=== PATIENT | female | born 1975 | race Caucasian/White ===

== ENCOUNTER → 2017-03-12 | Outpatient (CLI) | payer BC ==
[~2017-03-12] MED LIST: LEVO1TAB PO
--- NOTE | 2017-03-12 12:05 | DIAGNOSTIC IMAGING REPORT ---
THYROID ULTRASOUND CLINICAL HISTORY: PERSONAL HX OF THYROID Malignancy, hypothyroidism COMPARISON STUDY: None. TECHNIQUE: Sonography of the thyroidectomy bed and adjacent soft tissues was performed. FINDINGS: No nodules or enlarged lymph nodes were identified within the neck. No residual thyroid tissue was identified status post thyroidectomy. IMPRESSION: No evidence of recurrent malignancy within the neck status post thyroidectomy. Electronically signed by: Damian Hess M.D. 03/12/2017 12:04 PM Dictated Date/Time: 03/12/2017 12:03 PM
== END | disposition home or self-care (01) ==
LOC: C.ULTR 11:29
PROVIDERS: ATTEND Physician Assistant
DX: Z85.850 Personal history of malignant neoplasm of thyroid (principal); E03.9 Hypothyroidism, unspecified

== ENCOUNTER → 2017-03-12 | Outpatient (CLI) | payer BC ==
--- NOTE | 2017-03-12 13:32 | MAMMOGRAPHY REPORT ---
BILATERAL DIGITAL DIAGNOSTIC MAMMOGRAM TOMOSYNTHESIS WITH CAD AND TARGETED BILATERAL ULTRASOUND: 03/12 CLINICAL HISTORY: 42-year-old woman presents after feeling a lump in the upper outer quadrant of the right breast 1-2 weeks ago. No skin erythema or nipple discharge. Also baseline mammogram. TECHNIQUE: Bilateral breast tomosynthesis in addition to standard 2D mammography was performed. Curre nt study was also evaluated with a Computer Aided Detection (CAD) system. COMPARISON: No prior exams were available for comparison. BREAST COMPOSITION: The tissue of both breasts is almost entirely fatty. FINDINGS: A triangular marker was placed overlying the skin of the upper outer quadrant of the right breast, denoting the lump pointed out by the patient. There is no evidence of a suspicious mass, arc hitectural distortion, asymmetry or calcifications in the area of palpable concern or throughout the remainder of the right breast. There is a low density 5 mm nodular asymmetry in the medial anterior left breast on the CC view that probably represents fibroglandular tissue. This is not identified on the MLO view and localizes inferiorly based on the CC tomosynthesis localizer bar. However given th at this is the baseline exam and there are no prior mammograms for comparison, further evaluation wit h ultrasound was also performed in the lower inner quadrant of the left breast. Targeted ultrasound was performed in the area of palpable lump pointed out by the patient (10:00 axis approximately 7 cm from the nipple). I was unable to palpate a discrete suspicious mass in the area pointed out by the patient. 2. Additional scanning was also performed in the adjacent 9:00 and 11:00 axes. Sonographically norm al tissue is seen without a discrete solid or cystic mass. No suspicious mass was seen in the lower inner quadrant of the left breast to correlate with the nodu lar asymmetry. IMPRESSION: ACR BI-RADS CATEGORY 2: BENIGN, TARGETED ULTRASOUND ACR BI-RADS CATEGORY 2: BENIGN 1. There is no suspicious mammographic or sonographic abnormality to explain the palpable lump in th e right upper outer quadrant. Therefore, clinical follow-up is recommended, as biopsy of a clinicall y suspicious mass should not be precluded by negative imaging. 2. Low density nodularity in the medial left breast seen on the CC tomosynthesis images most likely represents normal fibroglandular tissue, and no suspicious sonographic correlate was seen. 3. Overall, no mammographic evidence of malignancy in the breasts. Pending any further workup in th e right upper outer quadrant, would recommend bilateral routine mammography in one year. Approximately 10% of breast cancers are not detected with mammography. A negative mammographic report should not delay biopsy if a clinically suggestive mass is present. Lashae Ma M.D. ay/:03/12/2017 12:13:43 Ornithology Teacher: Shirlene RUBIN(R)(M), [facility] letter sent: Normal 1/2 BI-RADS Code: ACR BI-RADS Category 2: Benign Ultrasound BI-RADS: ACR BI-RADS Category 2: Benign
== END | disposition home or self-care (01) ==
LOC: C.MAMM 09:35
PROVIDERS: ATTEND Physician Assistant
DX: N63 Unspecified lump in breast (principal)

== ENCOUNTER 2017-11-25 12:07 | Emergency (ER) | payer BC, OTHER ==
[~2017-11-25] VITALS: Ht 170.2 cm; Wt 108.7 kg
[2017-11-25 12:23] VITALS: Ht 170.2 cm; Wt 108.7 kg
[2017-11-25 14:13] VITALS: TEMP 36.7
[2017-11-25 14:35] LABS: HEMATOCRIT 44.5 % (37-47); HEMOGLOBIN 15.1 g/dL (12.0-16.0); MEAN CELL VOLUME 85.6 fL (80-100); MEAN CORPUSCULAR HGB CONC 33.9 g/dl (32-36); MEAN PLATELET VOLUME 9.6 fL (7.4-10.4); PLATELET COUNT 269 K/uL (130-400); RED CELL DISTRIBUTION WIDTH CV 12.9 % (11.5-14.5); RED CELL DISTRIBUTION WIDTH SD 40.4 fL (36.4-46.3); WHITE BLOOD COUNT 6.58 K/uL (4.8-10.8)
[2017-11-25 14:43] LABS: INR 0.9 (0.9-1.1); PTT PATIENT 26.6 SECONDS (21.0-31.0)
[2017-11-25 14:56] LABS: ALBUMIN 4.1 gm/dl (3.4-5.0); ALT/SGPT 60 U/L (12-78); BLOOD UREA NITROGEN 9 mg/dl (7-18); CALCIUM 9.1 mg/dl (8.5-10.1); CARBON DIOXIDE 23 mmol/L (21-32); CREATININE 0.86 mg/dl (0.60-1.20); GLUCOSE 83 mg/dl (70-99); POTASSIUM 3.8 mmol/L (3.5-5.1); SODIUM 136 mmol/L (136-145)
[2017-11-25 15:01] LABS: ALKALINE PHOSPHATASE 94 U/L (45-117); AST/SGOT 27 U/L (15-37); CKMB < 0.5 ng/ml (0.5-3.6); TOTAL PROTEIN 7.4 gm/dl (6.4-8.2)
[2017-11-25 15:19] VITALS: O2SAT 97
[2017-11-25] MEDS ORDERED: RIVA1TAB4 PO (15:25)
[2017-11-25] MEDS ORDERED: LEVO137T3 PO (15:25)
--- NOTE | 2017-11-25 15:29 | DIAGNOSTIC IMAGING REPORT ---
CHEST ONE VIEW PORTABLE HISTORY: 42 years-old Female palpitations acute cardiac palpitations COMPARISON: None available TECHNIQUE: Portable AP view of the chest FINDINGS: Cardiomediastinal and hilar silhouettes are within normal limits. No pneumothorax, pleural effusion, focal airspace consolidation or overt pulmonary edema. The bones of the chest appear grossly intact. IMPRESSION: No acute process. The above report was generated using voice recognition software. It may contain grammatical, syntax or spelling errors. Electronically signed by: Jose Raul Zimmerman M.D. 11/25/2017 3:27 PM Dictated Date/Time: 11/25/2017 3:27 PM
[2017-11-25] MEDS ORDERED: OPTIRAY 320 IV PRN (15:30)
--- NOTE | 2017-11-25 16:12 | DIAGNOSTIC IMAGING REPORT ---
(CHEST FOR PE) ANGIO WITH CLINICAL HISTORY: 42 years-old Female presenting with ^eval PE ^chest pain, hx factor V. TECHNIQUE: Multidetector CT angiography of the chest was performed after administration of intravenous contrast. 3-D volumetric and/or maximum intensity projection (MIP) images were subsequently reconstructed for review. IV contrast: 87 mL of Optiray 320. A dose lowering technique was used consistent with the principles of ALARA (as low as reasonably achievable). COMPARISON: Chest x-ray performed earlier the same day. CT DOSE (mGy.cm): The estimated cumulative dose is 457.89 mGycm. FINDINGS: Promotional Marketing Analyst topogram: Unremarkable. Pulmonary vasculature: The study is suboptimal for the assessment of the pulmonary vascular tree secondary to timing of the contrast bolus and respiratory motion artifact. Allowing for limited image quality, no central filling defect to suggest pulmonary embolus. Main pulmonary artery is not enlarged. No flattening of the interventricular septum. No intracardiac filling defect. No reflux of contrast into the hepatic veins. Remaining chest: On soft tissue windows, thyroid may be surgically absent or outside the [id number]. Few small calcified lymph nodes noted in the prevascular region. No pathologically enlarged lymph nodes in the axillae, supraclavicular fossae, mediastinum, or amadou. Normal aorta. Top normal cardiac size. No pericardial or pleural effusion. Upper abdomen normal. On lung windows, extensive mosaic attenuation suggest small airways disease. No significant interlobular septal thickening. No focal infiltrate or nodule. Central airways patent. On bone windows, normal osseous structures. IMPRESSION: 1. Allowing for suboptimal image quality, no evidence of pulmonary embolus. 2. Extensive mosaic attenuation suggest small airways disease. No focal infiltrate to suggest pneumonia. Electronically signed by: Raj Dao M.D. 11/25/2017 4:11 PM Dictated Date/Time: 11/25/2017 4:06 PM
--- NOTE | 2017-11-25 16:30 | EMERGENCY ROOM VISIT NOTE ---
ED Visit Note First contact with patient: 14:51 CHIEF COMPLAINT: Chest pain, palpitations HISTORY OF PRESENTING ILLNESS: This is a 42-year-old female with past medical history of hypothyroidism secondary to thyroidectomy, factor V Leiden, and fibromyalgia, who presents to the emergency department with complaint of chest pains that started 5 days ago. She states that the chest pain is intermittent, only lasts for a few seconds, is sharp stabbing pain and "almost feels like an electric shock in my chest," occasionally radiates into her shoulders, back, and down her legs which she attributes to her fibromyalgia, nothing seems to make it better or worse, currently she denies any pain. She does rate these pain episodes as 8/10. She states that her symptoms have been getting progressively worse, she is now having these episodes frequently, she believes more than 10 times an hour. She states that when this happens, it feels like her heart is racing, but when she checks her pulse with her wrist band heart rate monitor, it is usually in the 60s. She has associated shortness of breath , lightheadedness, and sweats with the episodes, this resolves quickly after the pain stops. She denies any ongoing shortness of breath or exertional dyspnea. She denies any nausea or vomiting. She is on Xarelto for her factor V , denies any history of DVT or PE, and states she has been taking this medication appropriately. She reports a history of thyroid cancer, which is why she had her thyroidectomy, she states that she has been very stable on her medications and her most recent thyroid levels were within normal limits. She denies any headaches, vision changes, neck pain, back pain, abdominal pain, diarrhea, urinary symptoms, or rash. She denies any recent illnesses, fevers or chills. REVIEW OF SYSTEMS: A complete 10 point review of systems was reviewed with the patient with pertinent positives and negatives as per history of present illness. All else were negative. PAST MEDICAL HISTORY: Reviewed in the chart and as above SOCIAL HISTORY: Lives at home. She vapes daily, reports occasional alcohol use , denies any recreational drug use. ALLERGIES: Reviewed in chart. PHYSICAL EXAM: CONSTITUTIONAL: Pleasant and cooperative. No acute distress. Well-hydrated, well appearing and well nourished. HEENT: Normocephalic, atraumatic. Pupils equal, round and reactive to light, EOMI. TMs normal. Pharynx normal. Moist mucous membranes. NECK: Supple, full active range of motion without discomfort. No cervical adenopathy. RESPIRATORY: Clear to auscultation bilaterally with no wheezing, crackles, rhonchi or stridor. Equal expansion bilaterally. CARDIOVASCULAR: Regular rate and rhythm with no murmurs, rubs or gallops. Normal peripheral perfusion. No edema. CHEST WALL: Anterior chest wall mildly tender to palpation, no crepitus, no ecchymosis, no rash, no swelling. GASTROINTESTINAL: Soft, nontender, nondistended. No palpable masses or HSM. Bowel sounds present in all quadrants. MUSCULOSKELETAL: Full range of motion of all joints without discomfort. INTEGUMENTARY: No rash or other significant dermatologic conditions noted. NEUROLOGIC: Alert and oriented X 4 with normal affect. Normal strength and sensation in all 4 extremities. No focal neurologic deficits noted. Normal speech. Normal gait observed. ED COURSE AND MEDICAL DECISION MAKING: CC: Patient presenting with complaint of chest pain/palpitations DIFFERENTIAL DIAGNOSIS: Includes, but not limited to cardiac dysrhythmia, ectopy, acute coronary syndrome, pulmonary embolism, pericarditis, anxiety, musculoskeletal pain, GERD, costochondritis, pneumonia, among others. INTERPRETATION OF LABS: No leukocytosis, no anemia, no significant electrolyte abnormalities, normal renal function, normal liver enzymes. Coagulation factors within normal limits. TSH normal. IMAGING: CHEST ONE VIEW PORTABLE HISTORY: 42 years-old Female palpitations acute cardiac palpitations COMPARISON: None available TECHNIQUE: Portable AP view of the chest FINDINGS: Cardiomediastinal and hilar silhouettes are within normal limits. No pneumothorax, pleural effusion, focal airspace consolidation or overt pulmonary edema. The bones of the chest appear grossly intact. IMPRESSION: No acute process. ----- (CHEST FOR PE) ANGIO WITH CLINICAL HISTORY: 42 years-old Female presenting with ^eval PE ^chest pain, hx factor V. TECHNIQUE: Multidetector CT angiography of the chest was performed after administration of intravenous contrast. 3-D volumetric and/or maximum intensity projection (MIP) images were subsequently reconstructed for review. IV contrast: 87 mL of Optiray 320. A dose lowering technique was used consistent with the principles of ALARA (as low as reasonably achievable). COMPARISON: Chest x-ray performed earlier the same day. CT DOSE (mGy.cm): The estimated cumulative dose is 457.89 mGycm. FINDINGS: Fur Floor Worker topogram: Unremarkable. Pulmonary vasculature: The study is suboptimal for the assessment of the pulmonary vascular tree secondary to timing of the contrast bolus and respiratory motion artifact. Allowing for limited image quality, no central filling defect to suggest pulmonary embolus. Main pulmonary artery is not enlarged. No flattening of the interventricular septum. No intracardiac filling defect. No reflux of contrast into the hepatic veins. Remaining chest: On soft tissue windows, thyroid may be surgically absent or outside the [id number]. Few small calcified lymph nodes noted in the prevascular region. No pathologically enlarged lymph nodes in the axillae, supraclavicular fossae, mediastinum, or amadou. Normal aorta. Top normal cardiac size. No pericardial or pleural effusion. Upper abdomen normal. On lung windows, extensive mosaic attenuation suggest small airways disease. No significant interlobular septal thickening. No focal infiltrate or nodule. Central airways patent. On bone windows, normal osseous structures. IMPRESSION: 1. Allowing for suboptimal image quality, no evidence of pulmonary embolus. 2. Extensive mosaic attenuation suggest small airways disease. No focal infiltrate to suggest pneumonia. EKG: Shows sinus rhythm with a rate of 67bpm, no acute ischemic changes noted, no significant changes when compared to previous EKG from 01/17/2015 by my interpretation. MEDICATION RECONCILIATION: I attest that I have personally reviewed the patient 's current medication list. INITIAL VITAL SIGNS REVIEW: I reviewed the patient's initial vital signs and interpret them as follows: T: Afebrile; BP: Hypertensive; HR: Within normal limits; RR: Within normal limits; Pulse Ox: Within normal limits on room air. Blood pressure screening: The patient was found to have an elevated blood pressure and was referred to their primary doctor for recheck and further treatment. SUMMARY: Patient was evaluated at bedside, history and physical exam performed. Patient is alert and oriented, no acute distress, resting calmly in stretcher. Patient currently denies any complaints of chest pain, shortness of breath, dizziness, or palpitations. Heart sounds normal, lungs are clear. No calf swelling or tenderness on exam. EKG reviewed at bedside, NSR with no acute ischemic changes. Given the history of Factor V, patient has increased risk for clotting, and clinical concern for possible PE. Orders were placed at bedside for labs, chest x-ray, CT chest to evaluate for PE. Patient discussed with Dr. Patel, who agrees with my assessment and plan. Labs and imaging reviewed as above, unremarkable, specifically negative for PE. Troponin is negative. Patient remains chest pain-free, but states she has had several episodes where she feels the palpitations. Monitor events were reviewed by myself, noting a few episodes with PVCs, but no runs of ectopy or tachyarrhythmias noted. Patient reassessed multiple times throughout ED stay, she remains well- appearing without any significant complaints. She has been ambulating in the room without difficulty. Patient is noted to be persistently hypertensive, she states that she is a history of this but is not on medication. She was encouraged to have this rechecked by her primary doctor Patient was updated on all results and plan for discharge, she was encouraged to follow closely with her PCP, and was also recommended to have a Holter monitor placed for further evaluation. Patient was also given strict return precautions should her symptoms worsen, she verbalized understanding. Patient was discharged home in stable condition and ambulatory. Problem List Surgical Problems: (1) History of cholecystectomy Status: Resolved (2) Hx of appendectomy Status: Resolved Current/Historical Medications Scheduled Levothyroxine Sodium (Levothyroxine Sodium), 137 MCG PO DAILY Rivaroxaban (Xarelto), 20 MG PO DAILY Allergies Coded Allergies: Cefaclor (Verified Allergy, Severe, ANAPHYLAXIS, 10/07/13) Penicillins (Verified Allergy, Severe, ANAPHYLAXIS, 01/17/15) Morphine (Verified Adverse Reaction, Unknown, GI SYMPTOMS, 01/17/15) Uncoded Allergies: PCN (Allergy, Severe, ANAPHYLAXIS, 10/07/13) ASPRIN (Adverse Reaction, Unknown, GI SYMPTOMS, 01/17/15) Vital Signs Date Time Temp Pulse Resp B/P (MAP) Pulse Ox O2 Delivery O2 Flow Rate FiO2 11/25/17 18:42 58 23 152/96 95 Room Air 11/25/17 17:09 62 11/25/17 17:06 60 20 156/100 97 Room Air 11/25/17 15:19 64 15 144/106 97 Room Air 11/25/17 15:19 97 Room Air 11/25/17 14:13 36.7 78 16 163/95 98 11/25/17 12:23 37.1 82 18 168/95 97 Room Air Laboratory Results 11/25/17 14:20 11/25/17 14:20 Test 11/25/17 14:20 11/25/17 14:23 Red Blood Count 5.20 M/uL (4.2-5.4) Mean Corpuscular Volume 85.6 fL (80-100) Mean Corpuscular Hemoglobin 29.0 pg (25-34) Mean Corpuscular Hemoglobin Concent 33.9 g/dl (32-36) RDW Standard Deviation 40.4 fL (36.4-46.3) RDW Coefficient of Variation 12.9 % (11.5-14.5) Mean Platelet Volume 9.6 fL (7.4-10.4) Prothrombin Time 9.5 SECONDS (9.0-12.0) Prothromb Time International Ratio 0.9 (0.9-1.1) Activated Partial Thromboplast Time 26.6 SECONDS (21.0-31.0) Partial Thromboplastin Ratio 1.0 Anion Gap 11.0 mmol/L (3-11) Est Creatinine Clear Calc Drug Dose 108.2 ml/min Estimated GFR () 96.6 Estimated GFR (Non- 83.3 BUN/Creatinine Ratio 10.1 (10-20) Calcium Level 9.1 mg/dl (8.5-10.1) Total Bilirubin 0.7 mg/dl (0.2-1) Aspartate Amino Transf (AST/SGOT) 27 U/L (15-37) Alanine Aminotransferase (ALT/SGPT) 60 U/L (12-78) Alkaline Phosphatase 94 U/L (45-117) Total Creatine Kinase 82 U/L (26-192) Creatine Kinase MB < 0.5 ng/ml (0.5-3.6) Creatine Kinase MB Ratio (0-3.0) Total Protein 7.4 gm/dl (6.4-8.2) Albumin 4.1 gm/dl (3.4-5.0) Globulin 3.3 gm/dl (2.5-4.0) Albumin/Globulin Ratio 1.2 (0.9-2) Thyroid Stimulating Hormone (TSH) 0.814 uIu/ml (0.300-4.500) Bedside Troponin I < 0.030 ng/ml (0-0.045) Departure Information Impression Primary Impression: Palpitations Dispostion Home / Self-Care Condition GOOD Referrals Arcelia Meza PA-C (PCP) Patient Instructions ED Palpitations, My [facility] Additional Instructions You have been evaluated in the emergency department for your chest pain and palpitations. Laboratory results and imaging studies have ruled out any emergent causes for your symptoms which would warrant admission or surgery. It is important that you stay well hydrated. Drink plenty of fluids throughout the day to accomplish this. You should follow-up with your primary care provider in the next few days to be set up with a Holter monitor and echocardiogram study as an outpatient. Call for an appointment. Please return to the emergency department for any worsening symptoms, including persistent chest pain, shortness of breath, severe dizziness or passing out, severe nausea or persistent vomiting, coughing up blood, or any other concerns. Work Instructions Return To Work: 1 day
[2017-11-25 18:42] VITALS: BP 152/96; PULSE 58; O2SAT 95
== END 2017-11-25 18:49 | disposition home or self-care (01) ==
LOC: C.EDB 12:09 → C.EDC 18:49
DX: R00.2 Palpitations (principal); R07.9 Chest pain, unspecified; Z79.899 Other long term (current) drug therapy; Z88.0 Allergy status to penicillin; Z88.8 Allergy status to other drugs, medicaments and biological substances

== ENCOUNTER → 2017-11-28 | Outpatient (CLI) | payer OTHER ==
[~2017-11-28] MED LIST changes: +LEVO137T3 PO; -LEVO1TAB PO; +RIVA1TAB4 PO
--- NOTE | 2017-11-28 13:30 | DIAGNOSTIC IMAGING REPORT ---
LEFT HIP 2 VIEWS CLINICAL HISTORY: Left hip pain. FINDINGS: AP and frog-leg views of left hip are obtained. No prior studies are available for comparison at the time of dictation. The skeletal structures are well mineralized. No fracture is identified. There is no evidence of osteonecrosis. The joint space of the hip is well maintained. Mild sclerotic change is observed in the left sacroiliac joint and the pubic symphysis. The overlying soft tissues are within normal limits. IMPRESSION: Unremarkable radiographic assessment of the left hip. Electronically signed by: Bonifacio Abarca M.D. 11/28/2017 1:29 PM Dictated Date/Time: 11/28/2017 1:28 PM
--- NOTE | 2017-11-28 13:30 | DIAGNOSTIC IMAGING REPORT ---
R HIP UNILATERAL 2 VIEWS CLINICAL HISTORY: Bilateral hip pain. COMPARISON: None FINDINGS: Alignment of the right hip is anatomic. There is no fracture or suspicious lesion. The joint space is preserved. There is moderate osteophytosis of the right hip with abnormal contour at the femoral head neck junction. There is no evidence for avascular necrosis. IMPRESSION: 1. No acute fracture. 2. Preserved right hip joint space with moderate osteophytosis. Electronically signed by: Damian Hess M.D. 11/28/2017 1:29 PM Dictated Date/Time: 11/28/2017 1:28 PM
== END | disposition home or self-care (01) ==
LOC: C.RAD1850 12:30
PROVIDERS: ATTEND Physician Assistant
DX: M25.551 Pain in right hip (principal)

== ENCOUNTER → 2017-12-20 | Outpatient (CLI) | payer OTHER | END | disposition home or self-care (01) | LOC: C.RDSM 09:27 | PROVIDERS: ATTEND Orthopaedic Surgery | DX: M25.551 Pain in right hip (principal) ==